=== PATIENT | male | born 1965 | race Caucasian/White ===

== ENCOUNTER 2025-09-25 07:24 | Day surgery (SDC) | payer BC ==
[2025-09-24 09:27] VITALS: BMI 23.1
[2025-09-25] MEDS ORDERED: Lidocaine 4% PF 5 ML AMP ONE (08:05)
[2025-09-25] MEDS ORDERED: Lidocaine 1% PF 5 ML VIAL ONE (09:06)
[2025-09-25] MEDS ORDERED: Rocuronium Bromide 10 MG/ML (10ML VIAL) ONE (09:06)
[2025-09-25] MEDS ORDERED: PROPOFOL 200 MG/20 ML VIAL ONE (09:42)
[2025-09-25] MEDS ORDERED: Ondansetron PF 4 MG/2 ML Vial ONE (10:01)
[2025-09-25] MEDS ORDERED: SUGAMMADEX SODIUM 200 MG/2 ML VIAL ONE (10:03)
[2025-09-25] MEDS ORDERED: fentaNYL PF 100 MCG/2 ML SYRINGE ONE ×2 (10:22→10:45)
== END 2025-09-25 12:18 | disposition home or self-care (01) ==
LOC: SDC 07:24
PROVIDERS: ATTEND Internal Medicine Critical Care Medicine
PROC: 0BJ08ZZ Inspection of Tracheobronchial Tree, Via Natural or Artificial Opening Endoscopic (ICD-10-PCS; principal; 2025-09-25)
DX: C15.3 Malignant neoplasm of upper third of esophagus (principal); C15.4 Malignant neoplasm of middle third of esophagus; Z87.891 Personal history of nicotine dependence; Z98.890 Other specified postprocedural states
CPT/HCPCS: J1100; J2003; J2405; J2704; J3010